=== PATIENT | male | born 1960 | race Caucasian/White ===

== ENCOUNTER → 2020-04-28 07:15 | Outpatient (CLI) | payer OTHER, MEDICAID, SELFPAY ==
--- NOTE | 2020-04-28 07:20 | DI.MRI.S_ITS ---
PROCEDURE: MR HEAD/BRAIN WO/W CON INDICATIONS: symptoms and signs involving cognitive function TECHNIQUE: Noncontrast axial T1 spin echo, axial T2 fast spin echo, sagittal and axial FLAIR, coronal T2 fast spin echo, axial gradient echo, axial diffusion and ADC through the brain. After the administration of contrast, axial and coronal T1 spin echo with fat saturation through the brain. COMPARISON: None. FINDINGS: Image quality: Excellent. CSF spaces: Basal cisterns are patent. No extra-axial fluid collections. Ventricles are normal in size and shape. Brain: No midline shift. No intracranial bleeds or masses. No abnormal intracranial enhancement. There is mild cerebral volume loss for age. There is mild periventricular white matter chronic small vessel ischemic change. The brainstem appears normal. Diffusion-weighted images demonstrate no acute ischemic insults. No chronic ischemic insults. Normal intravascular flow voids are present. Skull and face: Calvarial marrow is normal in signal. Orbits appear normal. Sinuses: Sinuses and mastoids appear clear. IMPRESSION: 1. No acute intracranial disease process. 2. No abnormal intracranial mass or mass effect. 3. No suspicious postcontrast enhancement. 4. No areas of acute or chronic infarction. Dictated by: Karina Alford MD, PhD on 04/28/2020 at 10:31 Approved by: Karina Alford MD, PhD on 04/28/2020 at 11:25
== END ==
PROVIDERS: Referring Provider Nurse Practitioner; Visit Provider Nurse Practitioner
DX: R41.89 Other symptoms and signs involving cognitive functions and awareness (principal); G60.9 Hereditary and idiopathic neuropathy, unspecified; F10.259 Alcohol dependence with alcohol-induced psychotic disorder, unspecified
CPT/HCPCS: 70553

== ENCOUNTER 2022-06-23 08:00 | Day surgery (SDC) | payer OTHER, MEDICAID, SELFPAY ==
--- NOTE | 2022-06-23 | PATH_ITS ---
[facility] Accession Number: [id number] No. of containers..01 Tissue . 01 Material submitted: . colon - TRANSVERSE COLON POLYP . 01 Diagnosis: Transverse Colon, Polypectomy: Serrated lesion, favor sessile serrated adenoma. Additional levels were examined. [facility] 06/29/2022 1452 Local . 01 Electronically signed: . Destini Bowen MD, Pathologist NPI- [id number] . 01 Gross description: . TRANSVERSE COLON POLYP: Received in formalin are 2 fragment(s) of lemus, soft tissue measuring 1.1 x 0.5 x 0.4 cm to 0.7 x 0.2 x 0.2 cm submitted entirely in 1 cassette(s) /[facility] 06/24/2022 1341 Local . 01 Pathologist provided ICD-10: D12.3 . 01 CPT . 990272 Specimen Comment: A courtesy copy of this report has been sent to [phone] Performed at: 01 [facility] [address] [place] [address], [place], [place] [id number] MD Celio Meyer MD Phone: [phone]
[2022-06-23 09:04] VITALS: BP 129/76; PULSE 57; RESP 18; TEMP 36.4; O2SAT 99; BMI 29.0
[2022-06-23] MEDS: LACTATED RINGERS 1,000 ML 42 ML IV (09:21)
--- NOTE | 2022-06-23 09:53 | PM.PREOP ---
Pre-operative Note COVID-19 COVID-19 status: Not tested Interval Note History & Physical reviewed/Exam performed by Physician: Yes Changes to H&P: No ASA Class (for procedural sedation): III
[2022-06-23 10:26] VITALS: BP 100/67; PULSE 54; RESP 12; TEMP 36.8; O2SAT 96
--- NOTE | 2022-06-23 10:27 | P.OP.COLON_ITS ---
Operative Date/Time/Diagnoses Date of procedure: 06/23/22 Time of procedure: 10:27 Pre-op diagnosis: History of colon polyps and hemorrhoids Post-op diagnosis: same Procedure & Clinicians Study performed: Colonoscopy and rubber-band ligation of internal hemorrhoids Same procedure as scheduled: Yes Surgeon: Diaz Chavez Procedure Notes Procedure in detail: Surgeon: Diaz Chavez MD Anesthesia: Rizwan Zelaya MD Procedure: The patient was brought to the endoscopy suite, placed in left la teral decubitus position. The patient was connected to monitoring devices. A time-out was performed. Sedation was administered. Once the patient was adequately sedated, a digital rectal exam was performed and prolapsed internal hemorrhoid was noted. The scope was then inserted and advanced to the cecum where the appendiceal orifice was identified and photographed. The scope was then slowly withdrawn over greater than 6 minutes. The mucosa was thoroughly inspected. There was a 7 mm flat polyp in the mid transverse colon removed with a cold snare. The scope was retroflexed in the rectum. There were internal hemorrhoids noted. Predominant hemorrhoid column was anterior. The scope was straightened and removed. We then performed rubber-band ligation. Two hemorrhoids were banded in the anterior sector. The scope was reinserted and a photograph was taken of the banded hemorrhoids. The patient was awakened and brought to recovery. Scope withdrawal time: 13 minutes Sedation time: 25 minutes EBL: 2 mL Findings: 7 mm polyp in the transverse colon and prolapsing internal hemorrhoids primarily from the anterior quadrant Post-procedure Disposition: PACU
[2022-06-23 10:32] VITALS: BP 106/74; PULSE 79; RESP 13; O2SAT 96
[2022-06-23 10:36] VITALS: BP 104/67; PULSE 59; RESP 13; TEMP 36.4; O2SAT 95
== END 2022-06-23 10:45 | disposition home or self-care (01) ==
PROVIDERS: PCP Internal Medicine; Referring Provider Surgery; Visit Provider Surgery
PROC: 0DJD8ZZ Inspection of Lower Intestinal Tract, Via Natural or Artificial Opening Endoscopic (ICD-10-PCS; CPT 45378; principal; 2022-06-23 10:00)
DX: Z12.11 Encounter for screening for malignant neoplasm of colon (principal); Z86.010 Personal history of colon polyps; K64.8 Other hemorrhoids; D12.3 Benign neoplasm of transverse colon
CPT/HCPCS: 46221; 45385; J2704; J3010

== ENCOUNTER → 2023-09-28 08:37 | Outpatient (CLI) | payer OTHER, MEDICAID, SELFPAY | PROVIDERS: Family Provider Internal Medicine; PCP Internal Medicine; Referring Provider Internal Medicine; Visit Provider Internal Medicine | DX: G56.03 Carpal tunnel syndrome, bilateral upper limbs (principal) | CPT/HCPCS: 95885; 95886; 95913 ==